=== PATIENT | male | born 1980 | race Two or more races ===

== ENCOUNTER 2018-01-19 00:20 | Emergency (ER) | payer SELFPAY ==
[~2018-01-19] VITALS: Ht 165.1 cm; Wt 68.0 kg
[2018-01-19 00:41] VITALS: BP 152/108
[2018-01-19] MEDS ORDERED: oxyCODONE HCL/Acetaminophen 5/325mg ORAL ONE (01:00)
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
[2018-01-19] MEDS ORDERED: Tetanus/Diptheria/Pertussis Vaccine 0.5ml Syr IM ONE (02:15)
--- NOTE | 2018-01-19 02:19 | Diagnostic Imaging Report ---
EXAM: XR Right Wrist Complete, 3 or More Views CLINICAL HISTORY: PAIN TECHNIQUE: Frontal, lateral and oblique views of the right wrist. COMPARISON: No relevant prior studies available. FINDINGS: Bones/joints: Comminuted displaced intra-articular fracture of the distal radius. No dislocation. Soft tissues: Unremarkable. No radiopaque foreign body. IMPRESSION: Comminuted displaced intra-articular fracture of the distal radius.
[2018-01-19] MEDS ORDERED: Morphine Sulfate 4mg/ml Inj ONE (02:21)
[2018-01-19] MEDS ORDERED: Morphine Sulfate 4mg/ml Inj IV ONE (02:30)
[2018-01-19] MEDS ORDERED: NORCO 5-325 TA1 EACH ORAL (03:16)
[2018-01-19] MEDS ORDERED: IBUPROFEN600 MG ORAL (03:16)
--- NOTE | 2018-01-19 04:14 | Diagnostic Imaging Report ---
EXAM: XR Right Wrist, 2 Views CLINICAL HISTORY: Fracture status post reduction/casting TECHNIQUE: Frontal and lateral views of the right wrist. COMPARISON: X-ray 01/19/18 at 0117 hrs. FINDINGS/IMPRESSION: 2 views provided of the right wrist submitted in plaster limiting bony detail. The previously seen extensively comminuted distal right radial fracture with intra-articular extension is again noted. Markedly improved anatomic alignment is present following reduction. No new fracture is clearly evident. Please see prior report for further detail.
[2018-01-19 04:23] VITALS: BP 152/84
[2018-01-19 04:24] VITALS: BP 152/84
== END 2018-01-19 04:25 | disposition home or self-care (01) ==
LOC: EMR 01:04 → CANBEDREQ 04:21 → EMR 04:25
DX: S52.571A Other intraarticular fracture of lower end of right radius, initial encounter for closed fracture (principal); S52.612A Displaced fracture of left ulna styloid process, initial encounter for closed fracture; S00.511A Abrasion of lip, initial encounter; W05.1XXA Fall from non-moving nonmotorized scooter, initial encounter; Y92.9 Unspecified place or not applicable; Z23 Encounter for immunization
CPT/HCPCS: 73100; 73110; 90471; 90715; 96374; 99284; J2270